=== PATIENT | male | born 1980 | race Asian ===

== ENCOUNTER 2018-05-11 23:17 | Emergency (ER) | payer SELFPAY, OTHER ==
[2018-05-12] MEDS: IBUPROFEN 800 MG TAB PO (01:14)
== END 2018-05-12 02:00 | disposition left against medical advice (07) ==
LOC: FTE 23:17
DX: S60.221A Contusion of right hand, initial encounter (principal); F17.210 Nicotine dependence, cigarettes, uncomplicated; W22.01XA Walked into wall, initial encounter; Y92.9 Unspecified place or not applicable
CPT/HCPCS: 73130; 73130-RT; 99283-25